=== PATIENT | female | born 2000 | race Caucasian/White ===

== ENCOUNTER 2025-01-30 08:05 | Emergency (ER) | payer OTHER, BC, SELFPAY ==
--- NOTE | 2025-01-30 08:14 | ED_ITS ---
HPI - URI/Sore Throat General Chief Complaint: Upper Respiratory Infection Stated Complaint: sore throat Time Seen by Provider: 01/30/25 08:26 Source: patient, RN notes reviewed and old records reviewed Mode of arrival: ambulatory Limitations: no limitations History of Present Illness HPI Narrative: 25 year old female who presents to [facility] care with complaints of head congestion, sore throat, runny nose, ears feel clogged since Thursday. Patient reports that her fiance was sick with similar symptoms 2 weeks ago. She reports that she did travel to [place] 2 weeks ago. Patient reports that she has been taking Zyrtec and also Arlyn Fairfield day and night cold and flu medication. Patient reports that throat is very sore has never had history of strep throat, denies any fevers chills or sweats. MD elicited complaint: sore throat, rhinorrhea, nasal congestion and other (ears feel clogged) Onset (ago): day(s) (3-4 days) Severity: moderate Description of mucous: clear Able to tolerate fluids by mouth: Yes Treatments prior to arrival: other (Arlyn Fairfield) Related Data Home Medications ?Medication ?Instructions ?Recorded ?Confirmed ?Last Taken ?Type No Home Medications 01/30/25 01/30/25 U nknown History Allergies Allergy/AdvReac Type Severity Reaction Status Date / Time No Known Allergies Allergy Unknown Verified 01/30/25 08:18 Review of Systems Review of Systems: CONSTITUTIONAL: Reports malaise, no chills, sweats, or fever. EYES: Denies visual changes, redness, or discharge. ENT: Reports rhinorrhea, congestion, sinus pressure, ears feel clogged, and positive for sore throat. CARDIOVASCULAR: Denies chest pain, palpitations, or edema. RESPIRATORY: Reports rare cough.? Denies dyspnea. GASTROINTESTINAL: Denies abdominal pain, nausea, vomiting, diarrhea SKIN: Denies rash or itching. MUSCULOSKELETAL: Denies myalgia. NEUROLOGIC: Denies headache. All systems reviewed & are unremarkable except as noted in HPI and below PMFSH Past Medical History Medical History (Updated 01/30/25 @ 09:40 by Elsy Turner NP) Separation of left acromioclavicular joint Social History Social History (Updated 01/30/25 @ 08:39 by Elsy Turner NP) Smoking status: Never smoker Alcohol intake: current Alcohol use details: social Substance use: never Living arrangements: with family Gender identity (if verbalized by the patient): Female Comments At time of signature, agree with nursing past medical, surgical, social and family history. There is no relevant family history pertinent to the presenting complaint Exam Narrative: GENERAL: Well-appearing, well-nourished, and in no acute distress. HEAD: Normocephalic EYES: PERRLA, conjunctivae clear ENT: Nares clear, turbinates edematous and erythematous, clear discharge. Mucous membranes moist. TM pearly martinez with dull light reflex bilaterally; no tragal tenderness. Oropharynx erythematous without lesions. Tonsils not enlarged and without exudate, no drooling, no hoarseness, no trismus, uvula midline.post nasal drainage noted NECK: Supple. No lymphadenopathy CHEST: Clear to auscultation, breath sounds equal. No wheezing, rhonchi, rales, or stridor. No respiratory distress, speaks in full sentences.rare ry cough, SAO2 100% on room air HEART: Regular rate and rhythm. No murmur heard. SKIN: Warm, dry, no rash. NEURO: Alert and oriented x3. PSYCH: Normal mood and affect Course Course Emergency Course: Patient is aware of diagnosis, understands and agrees to treatment plan.? Anticipatory guidance given.? Patient agrees to follow-up as directed and is aware of reasons to seek care at the emergency department. Portions of this record may have been created with voice recognition software Level of Care: Express Care Visit Vital Signs Vital signs: Vital Signs Temperature 36.2 C L 01/30/25 08:18 Pulse Rate 75 01/30/25 08:18 Respiratory Rate 18 01/30/25 08:18 Blood Pressure 105/58 L 01/30/25 08:18 Pulse Oximetry 100 01/30/25 08:18 Oxygen Delivery Room Air 01/30/25 08:18 Temperature 36.2 C L 01/30/25 08:18 Pulse Rate 75 01/30/25 08:18 Respiratory Rate 18 01/30/25 08:18 Blood Pressure 105/58 L 01/30/25 08:18 Pulse Oximetry 100 01/30/25 08:18 Oxygen Delivery Room Air 01/30/25 08:18 Reviewed MDM - URI/Sore Throat MDM Narrative Medical decision making narrative: Differential diagnosis considered: [place] virus, strep pharyngitis, allergic rhinitis, upper respiratory tract infection, sinusitis, rhinosinusitis, nasopharyngitis. viral pharyngitis, otitis media, otitis externa, pneumonia, bronchitis, viral cough syndrome, viral syndrome, and influenza.? Exam findings show no acute concerns or changes; patient is non-toxic appearing and is in no distress.? Patient is appropriate for outpatient treatment and follow-up. Differential Diagnosis Differential diagnosis: Likely upper respiratory infection, sinusitis, viral infection, pharyngitis and other (strep pharyngitis, COVID) Medical Records Attestation: I reviewed the patient's medical records. Lab Data Attestation: I reviewed the patient's lab results. Lab results narrative: strep screen negative, COVID antigen negative Strep culture sent Labs: Lab Results 01/30/25 01/30/25 Range/Units 08:37 08:40 POC SARS CoV-2 Ag Negative (Negative) POC Grp A Strep Screen Negative (Negative) Critical Care Time Critical Care Time Critical Care Time: No Discharge Plan Discharge Clinical Impression: Upper respiratory infection Qualifiers: URI type: unspecified URI Qualified Code(s): J06.9 - Acute upper respiratory infection, unspecified Patient Disposition: Home Condition: Stable Instructions: Cetirizine/Pseudoephedrine (By mouth), Upper Respiratory Infection (ED) Additional Instructions: Increase fluids especially juices and water Tdge-fvn-vketuyg cough and cold medicine of your choice for your symptoms Zyrtec Claritin or Eunice daily include plain Sudafed twice daily make sure you take p.m. does by 6pm heat to the face 20-30 minutes 4-6 times a day for pain Salt water gargles, throat lozenges or throat sprays as desired Your strep test today was negative. A throat culture will be sent to the laboratory for further testing. IF the test is positive, you will receive a phone call within 48 hours and an appropriate antibiotic will be initiated at that time. Patient Language: Taiwanese Prescriptions: No Action No Home Medications Follow-up/Referrals: Jarett,MD Lisa [Primary Care Provider, Unknown] Time of Disposition: 08:45 Quality [place] Coma Scale Eyes: Open Verbal: Oriented and Alert Motor: Follows Commands Dulce Coma Total Score: 15
[2025-01-30 08:18] VITALS: BP 105/58; PULSE 75; RESP 18; TEMP 36.2; O2SAT 100
--- OUTSIDE RECORDS SUMMARY | 2025-01-30 08:21 | XMS_ITS | Clinical Summary ---
Author Organization [facility] [place] Address [address] [place] [address] Care Team Providers Care Machine Buffer Name Role Phone Lisa Denson MD Primary Care Provider [phone] Source Comments [facility],non-owned Affiliates and Associated Physician Practices is amultiple site organization consisting of ambulatory clinics and hospital sitesin [place], [place], [place] and [place]. This disclosure is being madepursuant to the Care Everywhere program and may not contain all information available regarding this patient. Last updated 18.[facility] Allergies No known active allergies Medications * Be aware that medications may not be up to date on this document. Alwaysverify current medications with the patient. ibuprofen (MOTRIN) 400 MG tablet Take 1 tablet by mouth every 6 hours as needed for Pain 60 tablet 2 01/04/2018 Active etonogestrel-et hinyl estradiol (Nuvaring) 0.12-0.015 MG/24HR vaginal ring EluRyng 0.12 mg-0.015 mg/24 hr vaginal ring INSERT ONE VAGINAL RING ONCE EVERY MOUTH FOR 21 DAYS. Active Active Problems Problem Noted Date Diagnosed Date SRINATH positive 02/09/2014 Arthralgia 02/09/2014 Fatigue 02/09/2014 Resolved Problems Problem Noted Date Diagnosed Date Resolved Date Rash 02/09/2014 10/04/2014 Family History Medical History Relation Name Comments Arthritis Other 1 both sides of f amily Thyroid Disease Other 2 multiple on mom's side Other Other 3 MEN 1 in mother 's side Psoriasis Paternal Grandfather Arthritis - Rheumatoid Neg Hx Crohn's Disease Neg Hx IBD Neg Hx Lupus Neg Hx Relation Name Status Comments Other 1 Other 2 Other 3 Paternal Grandfather Social History Tobacco Use Types Packs/Day Years Used Date Smoking Tobacco: Never Smokeless Tobacco: Never Tobacco Cessation:Counseling Given: Not Answered Alcohol Use Standard Drinks/Week Comments Never 0 (1 standard drink = 0.6 oz pur e alcohol) PHQ-2 Answer Date Recorded PHQ2 TOTAL SCORE 0 04/24/2022 Comments No Sex and Gender Information Value Date Recorded Sex Assigned at Not on file Legal Sex Female 1:33 PM CDT Gender Identity Not on file Sexual Orientation Not on file Last Filed Vital Signs Vital Sign Reading Time Taken Comments Blood Pressure 110/62 04/24/2022 8:28 AM TECHNICAL INSPECTOR Pulse 73 04/24/2022 8:28 AM TECHNICAL INSPECTOR Temperature 36.8 C (98.2 F) 04/24/2022 8:28 AM TECHNICAL INSPECTOR Respiratory Rate 18 01/04/2018 12:56 PM CDT Oxygen Saturation 100% 04/24/2022 8:28 AM TECHNICAL INSPECTOR Inhaled Oxygen Concentration - - Weight 50.2 kg (110 lb 9.6 oz) 04/24/2022 8:28 A M TECHNICAL INSPECTOR Height 160 cm (5' 3) 04/24/2022 8:28 AM TECHNICAL INSPECTOR Body Mass Index 19.59 04/24/2022 8:28 AM TECHNICAL INSPECTOR Plan of Treatment Health Maintenance Due Date Last Done Comments HIV SCREENING 2017 HPV VACCINE (1 - 3-dose series) 2017 CHLAMYDIA/GONORRHEA SCREENING 2018 MENINGOCOCCAL (Group B) VACC INE SHARED DECISION-MAKING (1 of 2 - Standard) 2018 DTAP/TDAP/TD VACCINES (1 - Tdap) 2021 HEPATITIS B VACCINE (1 of 3 - 19+ 3-dose series) 2021 PAP SMEAR 2023 DEPRESSION SCREENING 05/25/2024 04/24/2022 COVID-19 VACCINE (1 - 2023-2 5 season) 2025 INFLUENZA VACCINE (#1) 2025 ZOSTER VACCINE (1 of 2) 01/28/2052 HEPATITIS C SCREENING Completed 11/18/2021 HIB VACCINE Aged Out No longer eligi ble based on patient's age to complete this topic MENINGOCOCCAL GROUPS A/C/Y/W VACCINE Aged Out No longer eligible b ased on patient's age to complete this topic PNEUMOCOCCAL VACCINE Aged Out No long er eligible based on patient's age to complete this topic Insurance [facility] Care Teams Machine Buffer Relationship Specialty Start Date End Date Lisa Denson MD [address] [place] [address] PCP - General 11/19/21
--- OUTSIDE RECORDS SUMMARY | 2025-01-30 08:21 | XMS_ITS | Clinical Summary ---
Author Organization [facility] Care Team Providers Care Shadow Graph Weight Operator Name Role Phone Unavailable Primary Care Provider Unavailabl e Social History Tobacco Use Types Packs/Day Years Used Date Smoking Tobacco: Never Assessed Comments Unknown Sex and Gender Information Value Date Recorded Sex Assigned at Not on file Legal Sex Female 12:40 PM CDT Gender Identity Not on file Sexual Orientation Not on file Plan of Treatment Health Maintenance Due Date Last Done Comments Hepatitis C Virus (HCV) Screening 2002 Meningococcal B Immunization (1 of 2 - Standard) 2018 SARS-COV-2 Immunization ( season) 2024 Influenza Immunization (#1) 2025 Respiratory Syncytial Virus (RSV) Immunization (Adult) (1 - 1-dose 75+ series) 2077 Pneumococcal Immunization Combined Aged Out 2002, 2002, 2002 No longer eligible based on patient's age to complete this topic Hepatitis B Immunization Completed 003, 2002, 2002, Additional history exists DTaP/Tdap/Td Immunization Discontinued 2013, 09/27/2007, 06/09/2003, Additional history exists Meningococcal Immunization (ACWY) Aged Out 01/09/2014 No longer eligible based on patient's age to complete this topic TdaP Immunization Completed 01/09/2014 Human Papillomavirus (HPV) Immunization Completed 03/03/2016, 02/07/2015 Rotavirus Immunization Aged Out No lo nger eligible based on patient's age to complete this topic
[2025-01-30 08:40] LABS: EDSTREPNEGPOS1 Negative (Negative)
[2025-01-30 08:42] LABS: EDCOVIDSCREEN Negative (Negative)
== END 2025-01-30 08:51 | disposition home or self-care (01) ==
PROVIDERS: Emergency Provider Registered Nurse; PCP Internal Medicine
DX: J06.9 Acute upper respiratory infection, unspecified (principal); Z20.822 Contact with and (suspected) exposure to COVID-19
CPT/HCPCS: 87081; 87426; 87880; 99203; G0463